=== PATIENT | male | born 1955 | race Caucasian/White ===

== ENCOUNTER 2019-10-08 00:47 | Day surgery (SDC) | payer MEDICARE, SELFPAY ==
[2019-09-19 09:33] VITALS: BP 152/86; PULSE 60; RESP 20; TEMP 36.7; O2SAT 95; BMI 33.0
--- NOTE | 2019-10-07 17:28 | WPDANESEPP ---
Anes - Eval Pre Procedure Procedure: Operation Date: 10/08/19 07:30 Proposed Procedures p Right Total Knee Arthroplasty - Milton Goetz MD Date/Time: 10/07/19 17:28 Pre Op Diagnosis: Right Knee Osteoarthritis Patient Data Age: 64 Gender: M Height: 6 ft 1 in Weight: 113.7 kg Last Vital Signs Temp 98.0 F 09/19/19 09:33 Pulse 60 09/19/19 09:33 Resp 20 09/19/19 09:33 BP 152/86 H 09/19/19 09:33 Pulse Ox 95 09/19/19 09:33 Allergies Allergy/AdvReac Type Severity Reaction Status Date / Time No Known Allergies Allergy Unverified 09/19/19 09:10 Home Medications Medication Instructions Recorded Confirmed Type ibuprofen 400 mg PO Q6H PRN 09/19/19 09/19/19 History Patient hx anesthesia problems: none Family hx anesthesia problems: none PMFSH Past Medical History Medical History Arthritis Cataract Osteoarthritis of right knee Surgical History Surgical History H/O total hip arthroplasty History of cholecystectomy History of total left knee replacement (~11/19/13) History of total right hip arthroplasty (~09/25/18) S/P TKR (total knee replacement) Status post arthroscopic surgery of right knee (~02/01/19) Status post cervical spinal fusion Social History Social History Smoking status: Never smoker Alcohol intake: current Exam Day of Procedure 10/07/19 17:28 Heart: other (VR 53, SINUS BRADYCARDIA BORDERLINE AV CONDUCTION DELAY POSSIBLE LEFT ATRIAL ENLARGEMENT DELAYED PRECORDIAL R/S TRANSITION BORDERLINE ST-T WAVE ABNORMALITY- INF/LAT LEADS BASELINE ARTIFACT- I, II, III, AVL, AVF BORDERLINE ECG)
[2019-10-08] VITALS (11 sets, daily range): BP systolic 100–152; BP diastolic 69–92; PULSE 52–66; RESP 12–19; TEMP 36.1–37; O2SAT 92–98; BMI 32.8
--- NOTE | ~2019-10-08 | XR_ITS ---
EXAMINATION: XR knee RT 2V DATE: 10/08/2019 09:47 INDICATION: Total right knee arthroplasty. Postop. TECHNIQUE: 2 views of right knee were obtained. COMPARISON: Right knee radiographs 09/30/2019 FINDINGS: There is a total right knee arthroplasty with patellar resurfacing in near-anatomic alignme nt. No fracture. There is gas in the knee joint and soft tissues, consistent with recent surgery. IMPRESSION: 1. Total right knee arthroplasty in near-anatomic alignment. Reviewed, dictated and finalized at location A. [employer]EARCH ASSISTANT
[2019-10-08] MEDS: LACTATED RINGERS 1,000 ML 30 ML IV CONT ×2 (06:30→09:32)
--- NOTE | 2019-10-08 07:03 | P.PNAN_ITS ---
Anes - Eval Final PreProcedure Day of Procedure 10/08/19 07:03 Patient weight: obese Heart: regular rate and rhythm Lungs: clear to auscultation and normal air movement Airway: Mallampati scale class II Neurological: alert and oriented Last oral intake: >/= 8 hours ASA classification: II Emergent: no Anesthetic plan: proceed Anesthesia type and monitoring: general LMA Informed Consent: The patient's anesthetic plan and its attendant risks and sobeida efits were discussed with the patient/family/POA. Questions were solicited and answers provided to the satisfaction of the patient/family/POA.
--- NOTE | 2019-10-08 07:04 | WPDANESPNB ---
Anes - Peripheral Nerve Block Date/Time: 10/08/19 07:04 I have discussed with the patient/family/POA the placement of a peripheral nerve block for post-operative pain management, including associated risks, benefits, complications, and side effects. Alternative methods of post-operative analgesia were detailed. Questions were solicited and answers provided to the satisfaction of the patient/family/POA. Time-Out: A pre-procedural Time-Out was completed immediately before starting the procedure and confirmed: Patient Identification, Site, Procedure, Patient Position and the Availability of Requisite Equipment. Clinical Indications: Acute post-operative pain management requested by the operative surgeon. Nerve Block Insertion Note Anes-nerve block: adductor canal right Patient position: supine Skin prep: chlorhexidine Needle: 22 gauge, stimulating, insulated echogenic needle. Needle length: 80 mm Technique: ultrasound Technique comment: in plane Injectate: bupivacaine 0.5% with epi 5 mcg/ml (30cc) Observations: tolerated well Complications: none Procedure start time:: 730 Procedure end time:: 73
--- NOTE | 2019-10-08 07:28 | WPDHPUPDATE1 ---
History and Physical Update Update Date/Time: 10/08/19 07:28 History and Physical has been reviewed, including an updated exam of the patient. There are NO changes in the patient's condition. Risks, benefits, and alternatives have been discussed and questions answered. Patient agrees to proceed with procedure.
[2019-10-08] MEDS: ceFAZolin 2 GM/D5W 50 ML 2 GM/50 ML BAG IVPB (07:36)
--- NOTE | 2019-10-08 09:29 | PM.PROC ---
Procedure Note - Detailed Date of procedure: 10/08/19 Pre-op diagnosis: Right Knee Osteoarthritis Post-op diagnosis: same Procedure performed: Total knee arthroplasty Implants: [place] [employer] size 6 press-fit femur, size 6 Tritanium press fit tibia, 9mm CR X3, polyethylene insert, 38 mm asymmetric Tritanium metal backed patellar component. Anesthesia: GETA and regional (subsartorial nerve block) Surgeon: Milton Goetz MD Estimated blood loss (mL): 200 Drains: No Complications: None Condition: stable Disposition: PACU Findings: Bone quality was excellent. Standard bone resections were performed. OPERATIVE DETAILS: The patient was given a nerve block preoperatively, and then brought to the operating room. A general anesthetic was administered. The leg was prepped and draped in the usual sterile fashion. The limb was elevated and the tourniquet inflated to 300 mmHg during initial exposure. A longitudinal incision was created along the medial border of the patella and patellar tendon, and a midvastus approach to the knee was performed. A moderate medial release was taken. The knee was then flexed. The osteophytes were carefully removed. The intramedullary guide was placed in the femoral canal. The distal femoral resection was then taken with the oscillating saw. The collateral ligaments were carefully protected. The tibia was carefully exposed. The jig was applied, and the proximal tibia was resected at 3 degrees according to preoperative plan. The knee was balanced in extension. Appropriate releases were taken where needed. The anterior cruciate ligament and meniscal remnants were removed. The posterior cruciate ligament was preserved. The patella was measured. Patellar resection was carried out with the oscillating saw. The lug holes drilled. The femur was sized and rotation assessed using a combination of gap balancing, posterior referencing, and the AP axis. The 4 in 1 cutting block was used to finish the femoral cuts after equal gaps were assured. The lug holes were drilled. The osteophytes were carefully removed from the back of the knee. The knee was copiously irrigated periodically throughout the procedure. The meniscal remnants were removed. The spacer block was used to confirm equal flexion and extension gaps. Further releases were performed as needed. The tibia was sized and broached. The bony surfaces were prepared for cementing with pulsatile lavage. The real tibial component was impacted into position followed by press fitting the femoral component. The patella component was press-fit. Patellar tracking was carefully assessed. No additional releases were required. The wound was closed with #1 Vycril suture, #2 Quill suture, 0-Quill suture, and 2-0 Quill suture followed by Steri-Strips. A sterile bulky dressing was applied. Meticulous hemostasis was maintained throughout the procedure. The Fluorofindertis device was utilized. There were no complications. The patient was extubated and brought to the recovery room in stable condition after the application of sterile dressing with Piero bandage.
--- NOTE | 2019-10-08 10:54 | ADMGEN ---
This patient, Ibrahima Loredo, was admitted to -. Patient/family oriented to hospital policies and general routines including ID bracelet, bed and alarms, visiting hours, pain management, procedures, bathroom and other care routines, personal items, smoking policy, room service/diet, and visiting hours. Valuables list has been completed. Information on how to activate the Rapid Response Team has been discussed. Patient/Family are encouraged to report perceived risks to care and to ask questions if they do not understand what they are told or what they should do.
[2019-10-08] MEDS: MELOXICAM 7.5 MG TABLET PO (17:32)
[2019-10-08] MEDS: ASPIRIN 81 MG ENTERIC TABLET PO (17:32)
[2019-10-08] MEDS: FAMOTIDINE 20 MG TABLET PO (21:40)
[2019-10-08] MEDS: DOCUSATE SODIUM 100 MG CAPSULE PO (21:40)
[2019-10-09 02:32] VITALS: BP 137/72; PULSE 56; RESP 16; TEMP 36.6; O2SAT 96
[2019-10-09 06:00] VITALS: BP 144/70; PULSE 50; RESP 16; TEMP 36.6; O2SAT 97
[2019-10-09 06:13] LABS: Basophils Percent Auto 0.2 % (0.2-1.2); Eosinophils Absolute Auto 0.1 K/mm3 (0-0.3); Eosinophils Percent Auto 0.7 % (0-4.4); Hemoglobin 11.3 g/dL (14.0-18.0); Immature Granulocyte Absolute 0.02 K/mm3 (0.00-0.031); Immature Granulocyte Percent A 0.2 % (0-0.5); Mean Corpuscular HGB Conc 33.2 g/dl (32-36); Mean Corpuscular Hemoglobin 32.5 pg (26-34); Mean Corpuscular Volume 97.7 fl (80-100); Mean Platelet Volume 9.9 fl (7.4-10.4); Monocytes Absolute Auto 1.4 K/mm3 (0.1-0.6); Monocytes Percent Auto 14.3 % (2.6-8.5); Neutrophils Absolute Auto 6.4 K/mm3 (1.3-6.7); Neutrophils Percent Auto 67.6 % (45.5-73.1); Platelet Count Result 173 k/mm3 (150-375); Red Blood Count 3.48 M/mm3 (4.6-6.20); Red Cell Distribution Width 12.6 % (11.5-14.5); White Blood Count 9.4 K/mm3 (4.5-10.0)
[2019-10-09 06:29] VITALS: PULSE 56
[2019-10-09 06:46] LABS: Blood Urea Nitrogen 14 mg/dL (9-20); Calcium 8.5 mg/dL (8.4-10.2); Carbon Dioxide 26 mmol/L (22-30); Chloride 97 mmol/L (98-107); Estimated CRCL calculation 104 ml/min; Estimated Glomerular Filt Rate > 60; Glucose 114 mg/dL (75-110); Potassium 3.7 mmol/L (3.4-5.0); Sodium 132 mmol/L (137-145)
[2019-10-09 09:00] VITALS: PULSE 58; RESP 16; O2SAT 97
[2019-10-09] MEDS: MELOXICAM 7.5 MG TABLET PO (09:07)
[2019-10-09] MEDS: FAMOTIDINE 20 MG TABLET PO (09:08)
[2019-10-09] MEDS: ASPIRIN 81 MG ENTERIC TABLET PO (09:08)
[2019-10-09 10:53] VITALS: BP 147/69; PULSE 63; RESP 15; O2SAT 97
--- NOTE | 2019-10-09 11:22 | PC.NURSE ---
On 10/09/19, the student, [Linda Bowman ], provided care and completed [facility] documentation on this patient. I have reviewed the student's documentation and agree with the findings.
--- NOTE | 2019-11-01 09:55 | PM.DS ---
DS: Diagnosis Admitting Diagnosis Admitting Diagnosis: Unilateral primary osteoarthritis, right knee Discharge Diagnosis (1) History of arthroplasty of right knee: Code(s): Z96.651 - Presence of right artificial knee joint Status: Acute DS: Summary Hospital Course Reason for hospitalization: Total knee arthroplasty, right knee. Hospital Course: Tolerated surgery well. Progressed appropriately with therapy. Status at Discharge Functional status at discharge: uses cane/walker Time Spent with Patient Time attestation: Total time spent providing and/or coordinating discharge services: Exam Const: General: no acute distress Resp: Effort & Inspection: normal respiratory effort Skin: Other: Wound healing well. Mepilex dressing intact. No hematoma or drainage. Neuro: Motor exam (neuro): 5/5 motor strength present throughout Sensory Exam: normal sensation Psych: Mental Status: mental status grossly normal Speech and movement: Normal speech and movement present Discharge Plan Discharge Patient Disposition: Home, Self-Care Discharge Instructions: See instruction sheet. Patient Instructions: Pain Management (DC), Knee Replacement (DC) Follow-up/Referrals: Milton Goetz MD [Physician] - Discharge Medications: New aspirin [Enteric Coated Aspirin] 81 mg tablet,delayed release (DR/EC) 81 mg PO DAILY Qty: 28 RF: 0 oxycodone-acetaminophen 5-325 mg tablet 1 - 2 tablet PO Q4-6H MDD 8 tablets PRN (Reason: pain) Qty: 40 RF: 0 Continued ibuprofen 200 mg Capsule 400 mg PO Q6H PRN (Reason: PAIN) RF: 0 Discharge Date/Time: 10/09/19 10:55 Quality VTE Prophylaxis VTE prophylaxis: mechanical ordered (ALFRED csoby and Dallin)
== END 2019-10-09 10:55 | disposition home or self-care (01) ==
LOC: ANHSURGERY 06:14 → ANH3MEDSUR 23:59
PROVIDERS: PCP Family Medicine; Visit Provider Orthopaedic Surgery
PROC: (CPT 27447; principal; 2019-10-08 07:30)
DX: M17.11 Unilateral primary osteoarthritis, right knee (principal); G89.18 Other acute postprocedural pain; H26.9 Unspecified cataract; Z96.641 Presence of right artificial hip joint; Z96.652 Presence of left artificial knee joint; Z98.1 Arthrodesis status
CPT/HCPCS: 27447; 64447; 36415; 73560; 80048; 85025; 86850; 86900; 86901; 97110; 97116; 97161; 97165; A9270; C1713; C1776; J0131; J0171; J0690; J1885; J2250; J2270; J2795; J3010; J7120